=== PATIENT | male | born 1985 | race Caucasian/White ===

== ENCOUNTER 2020-03-31 15:20 | Emergency (ER) | payer SELFPAY ==
[~2020-03-31] VITALS: Ht 177.8 cm; Wt 95.3 kg
--- NOTE | 2020-03-31 15:25 | NUR ---
PT came to ER with c/o tightness on left side of the chest an hour ago. non radiating. no diaphoresis. no SOB. v/s stable. awaiting for MD frye
--- NOTE | 2020-03-31 15:40 | NUR ---
at pt bedside for eval
--- NOTE | 2020-03-31 15:44 | NUR ---
iv line established. blood drawn and sent to lab
[2020-03-31] MEDS ORDERED: ASPIRIN 81 MG TAB.CHEW ONE (15:45)
[2020-03-31 16:00] LABS: HEMATOCRIT 46 % (39-51)
[2020-03-31] MEDS ORDERED: ASPIRIN 81 MG TAB.CHEW PO ONE (16:00)
[2020-03-31 16:04] LABS: BASOPHILS % (AUTO) 0.3 % (0.0-2.0); EOSINOPHILS % (AUTO) 1.4 % (0.0-6.0); LYMPHOCYTES # (AUTO) 2.6 /CMM (0.8-4.8); LYMPHOCYTES % (AUTO) 23.2 % (20.0-44.0); MEAN CORPUSCULAR HGB CONC 33 g/dl (31.0-36.0); MEAN CORPUSCULAR VOLUME 89 fL (80-96); MONOCYTES # (AUTO) 0.8 /CMM (0.1-1.30); MONOCYTES % (AUTO) 7.1 % (2.0-12.0); NEUTROPHILS # (AUTO) 7.5 /CMM (1.8-8.9); PLATELET COUNT (AUTO) 286 /CMM (150-450); RED BLOOD CELL COUNT(AUTO) 5.16 MIL/uL (4.5-6.0); WHITE BLOOD COUNT (AUTO) 11.1 K/uL (4.3-11.0)
[2020-03-31 16:30] LABS: CALCIUM, SERUM 9.3 mg/dL (8.5-10.1); CARBON DIOXIDE 28 mmol/L (21-32); CHLORIDE 100 mmol/L (98-107); CREATININE 0.7 mg/dL (0.6-1.3); GLUCOSE 142 mg/dL (74-106); POTASSIUM 3.9 mmol/L (3.5-5.1); SODIUM SERUM 138 mmol/L (136-145); UREA NITROGEN, BLOOD 15 mg/dL (7-18)
--- NOTE | 2020-03-31 17:15 | NUR ---
pt in bed alert and oriented. no acute distress. no pain or discomfort at this time. all needs attended. will continue POC
--- NOTE | 2020-03-31 17:29 | NUR ---
Patient a/ox4, breathing even and unlabored, denies pain at this time. AMbulatory with steady gait. IV removed. Catheter intact and site benign. Pressure and 4x4 applied to site. No bleeding noted.Patient discharged to home in stable condition. Written and verbal after care instructions given. Patient verbalizes understanding of instruction.
[2020-03-31 17:30] VITALS: BP 121/77
== END 2020-03-31 17:30 | disposition home or self-care (01) ==
LOC: ER 15:27
DX: R07.89 Other chest pain (principal); I10 Essential (primary) hypertension; E11.9 Type 2 diabetes mellitus without complications; Z88.8 Allergy status to other drugs, medicaments and biological substances
CPT/HCPCS: 36415; 71045-TC; 80048-TC; 84484-TC; 85025-TC; 85378-TC